=== PATIENT | female | born 1950 | race Caucasian/White ===

== ENCOUNTER 2019-11-25 06:24 | Day surgery (SDC) | payer BC ==
[2019-11-25] MEDS ORDERED: NA CHLORIDE 0.9% 1,000 ML ONE (06:37)
[2019-11-25] MEDS ORDERED: propofoL 200 MG/20 ML VIAL IV ONE (07:15)
[2019-11-25] MEDS ORDERED: FENTANYL CITR 100 MCG/2 ML ONE (07:15)
[2019-11-25] MEDS ORDERED: LIDOCAINE 2% MPF 5 ML VIAL ONE (07:15)
[2019-11-25] MEDS ORDERED: MIDAZOLAM HCL 2 MG/2 ML INJ ONE (07:16)
[2019-11-25] MEDS ORDERED: ONDANSETRON 4 MG/2 ML VIAL ONE (07:16)
[2019-11-25] MEDS ORDERED: LIDOCAINE 1% W/EPI 1:100,000 MDV 20 ML VIAL ONE (07:52)
[2019-11-25] MEDS ORDERED: MORPHINE 4 MG/ML SYR ONE (08:43)
[2019-11-25] MEDS ORDERED: ACETAMINOPHEN 500 MG TAB PO ONE (09:12)
[2019-11-25] MEDS ORDERED: ACETAMINOPHEN 500 MG TAB ONE (09:16)
[2019-11-25 09:20] VITALS: BP 108/51; TEMP 96.9; O2SAT 98
--- NOTE | 2019-11-25 18:20 | OP ---
Surgeon: Amanda Tian MD Preoperative Diagnoses: Postmenopausal bleeding, uterovaginal prolapse. Postoperative Diagnoses: Postmenopausal bleeding, uterovaginal prolapse, vulvar and vaginal atrophy and atrophic endometrium. Anesthesia: MAC plus paracervical block. Procedure: Hysteroscopy, dilation and curettage. Specimens: Endometrial curettings, very scant. Complications: No complications. Drains: No drains. Condition: Stable. Indications: A 69-year-old female with history of symptomatic prolapse, presented with history of ps oriatic arthritis, atrial fibrillation, also presented with postmenopausal bleeding that was very lig ht. So evaluation of transvaginal ultrasound showed a 4.1 mm endometrial stripe, so plan was to samp le the lining and visualize the cavity. So she was consented for hysteroscopy, D and C, and her anti coagulant was held, Eliquis for 48 hours and she will restart in 24 hours. 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 She was brought to the OR. Description Of Procedure: After informed consent was re-verified, taken back to OR, placed in a supi ne fashion, MAC given, placed in a dorsal lithotomy. Speculum placed and injected the cervix at 12 o 'clock with 5 mL of 1% lidocaine with epi in 4 and 8 o'clock positions for a paracervical block. Bet adine prep x3. Slimline diagnostic hysteroscope was used to enter the cervical canal under direct vi sualization into the uterine cavity. Cavity unremarkable. Mild atrophic endometrium seen. Both tub al ostia visualized. No intracavitary masses. Scope removed. Curettings were performed with a #1 c urette. A very scant sample was retrieved. There was mucus in her cervix as well. After the specim en was handed off for permanent pathology, instruments were removed. Instrument, needle, and sponge counts correct at the end of the case. The patient tolerated the procedure well. EBL minimal. She will follow up with me in 1 week. Discharge home today. DMITRY/BJORN Voice ID: [id number] Report ID: [id number]
== END 2019-11-25 09:43 | disposition home or self-care (01) ==
LOC: OR 06:24
PROVIDERS: ATTEND Obstetrics & Gynecology
PROC: 0UJD8ZZ Inspection of Uterus and Cervix, Via Natural or Artificial Opening Endoscopic (ICD-10-PCS; 2019-11-25)
PROC: 0UDB7ZX Extraction of Endometrium, Via Natural or Artificial Opening, Diagnostic (ICD-10-PCS; principal; 2019-11-25 07:30)
DX: N95.0 Postmenopausal bleeding (principal); N81.4 Uterovaginal prolapse, unspecified; N95.2 Postmenopausal atrophic vaginitis; N90.5 Atrophy of vulva; N85.8 Other specified noninflammatory disorders of uterus; I48.20 Chronic atrial fibrillation, unspecified; E11.9 Type 2 diabetes mellitus without complications; I10 Essential (primary) hypertension; E03.9 Hypothyroidism, unspecified; L40.50 Arthropathic psoriasis, unspecified; Z98.51 Tubal ligation status; Z90.49 Acquired absence of other specified parts of digestive tract; Z88.2 Allergy status to sulfonamides; Z88.6 Allergy status to analgesic agent; Z83.3 Family history of diabetes mellitus
CPT/HCPCS: 82947 ×2; 88305; 58558; J2704; J2250; J3010; J7030; J2405